=== PATIENT | male | born 1985 | race Caucasian/White ===

== ENCOUNTER → 2017-03-25 18:48 | Outpatient (CLI) | payer OTHER, SELFPAY ==
[2017-03-25 19:11] LABS: Absolute Lymphocyte Count 2.03 X10^3/ul (0.83-4.51); Basophil# 0.03 X10^3/uL; Basophil% 0.4 % (0-1); Eosinophil# 0.33 X10^3/uL; Eosinophils% 4.5 % (0-5); Hematocrit 45.6 % (40-54); Hemoglobin 15.1 g/dl (13.0-16.5); Lymphocyte # 2.03 X10^3/ul (4.0); Lymphocyte % 27.5 % (19-41); Mean Corp Hgb Conc 33.1 g/gl (32-36); Mean Corpuscular Hgb 29.8 pg (27.0-32.0); Mean Corpuscular Volume 90.1 fL (80-94); Mean Platelet Vol. 10.9 fl (6.2-12.0); Monocyte# 0.96 X10^3/uL; Neutrophil # 4.01 X10^3/uL (2.7-7.7); Neutrophil % 54.3 % (47-70); POSITIVE COUNT NO; POSITIVE DIFFERENTIAL NO; POSITIVE MORPHOLOGY NO; Platelet Count 224 K/mm3 (150-450); RBC Distribution Width CV 12.8 % (11.6-14.6); RBC Distribution Width SD 41.5 fl (35.1-43.9); Red Blood Count 5.06 M/mm3 (4.6-6.2); White Blood Count 7.4 K/mm3 (4.4-11.0)
[2017-03-25 19:36] LABS: Vitamin D,25 Hydroxy 26.4 ng/mL
[2017-03-25 19:39] LABS: ALB/GLOB Ratio 0.8 RATIO (0.9-2.4); AST(SGOT) 29 U/L (15-37); Alanine Aminotransfer ALT/SGPT 55 U/L (12-78); Albumin, Serum 3.7 g/dL (3.4-5.0); Alkaline Phosphatase 82 U/L (45-117); Anion Gap 8 (5-15); BUN 13 mg/dL (7-18); BUN/Creat Ratio 15.7 RATIO (10-20); Calcium,Total 9.2 mg/dL (8.5-10.1); Chloride 101 mmol/L (98-107); Creatinine, Serum 0.83 mg/dL (0.70-1.30); EST Glomerular Filtration Rate 115 mL/min (>60); Est Glom Filt Rate - Afr Amer 140 mL/min (>60); Globulin 4.5 g/dL (2.3-3.5); Glucose 75 mg/dL (70-110); Potassium 3.9 mmol/L (3.5-5.1); Protein, Total 8.2 g/dL (6.4-8.2); Sodium Level 139 mmol/L (136-145); Thyroid Stim Hormone (TSH) 1.87 uIU/mL (0.358-3.74)
== END | disposition home or self-care (01) ==
PROVIDERS: Visit Provider Family Medicine Geriatric Medicine
DX: Z00.00 Encounter for general adult medical examination without abnormal findings (principal)
CPT/HCPCS: 36415; 80053; 82306; 84403; 84443; 85025

== ENCOUNTER → 2018-02-15 16:09 | Outpatient (CLI) | payer OTHER, SELFPAY ==
--- NOTE | 2018-02-15 16:12 | VDLE_ITS ---
Reason For Study: Edema RIGHT LEFT GSV is normal. GSV is normal. CFV is compressible, spontaneous, phasic, CFV is compressible, spontaneous, phasic, competent and demonstrates normal competent, and demonstrates normal augmentation. augmentation. FV is compressible, spontaneous, phasic, FV is compressible, spontaneous, phasic, competent and demonstrates normal competent and demonstrates normal augmentation. augmentation. POP V is compressible, spontaneous, phasic, POP V is compressible, spontaneous, phasic, competent and demonstrates normal competent and demonstrates normal augmentation. augmentation. T/P Trunk is compressible. T/P Trunk is compressible. PTV is compressible. PTV is compressible. Unable to visualize Rt PeroV and prox/mid Unable to visualize Lt PeroV and prox/mid PTV due to pt body habitus PTV due to pt body habitus Difficult to visualize Rt FV distal and Rt Difficult to visualize Lt FV distal and Lt GastrocV. GastrocV. Procedure Exam performed in department. The study was technically difficult. The study was technically limited. A preliminary report was called and/or faxed to Dr. Hoyt. Interpretation Summary Deep veins of the lower extremities are bilaterally patent and compressible segmentally. There is no evidence of deep vein thrombosis on either side. Valvular competence appears intact within the proximal deep venous systems bilaterally. The greater saphenous veins appear bilaterally patent and compressible segmentally. The peroneal veins and proximal/mid-posterior tibial veins were not visualized on either side due to the patient's body habitus. The femoral veins and gastrocnemius veins were difficult to visualize bilaterally. Ordering Physician: Escobar Hoyt Chi Referring Physician: Escobar Hoyt Chi Performed By: Regina Howell, RDCS, RVT
== END ==
PROVIDERS: Family Provider Family Medicine Geriatric Medicine; PCP Family Medicine Geriatric Medicine; Visit Provider Family Medicine Geriatric Medicine
DX: R60.0 Localized edema (principal)
CPT/HCPCS: 93970

== ENCOUNTER 2018-05-31 15:30 | Outpatient (RCR) | payer OTHER, SELFPAY ==
[2018-05-17 15:16] VITALS: BP 156/105; PULSE 91; RESP 22; TEMP 37.2; BMI 61.0
--- NOTE | 2018-05-17 17:01 | HP.PCM_ITS ---
(1) Morbid obesity with BMI of 60.0-69.9, adult Status: Chronic Current Visit: Yes Code(s): E66.01 - Morbid (severe) obesity due to excess calories; Z68.44 - Body mass index (BMI) 60.0-69.9, adult (2) Chronic venous insufficiency Status: Chronic Current Visit: Yes Code(s): I87.2 - Venous insufficiency ( chronic) (peripheral) (3) Chronic venous hypertension w/ulcer and inflammation involv right side Status: Chronic Current Visit: Yes Code(s): I87.331 - Chronic venous hypertension (idiopathic) with ulcer and inflammation of right lower extremity; L97.919 - Non-pressure chronic ulcer of unspecified part of right lower leg with unspecified severity (4) Venous stasis ulcer Status: Chronic Current Visit: Yes Qualifiers: Venous stasis ulcer site: other part of lower leg Laterality: right Non- pressure ulcer stage: with fat layer exposed Code(s): I83.009 - Varicose veins of unspecified lower extremity with ulcer of unspecified site; L97.909 - Non-pressure chronic ulcer of unspecified part of unspecified lower leg with unspecified severity (5) Leg swelling Status: Chronic Current Visit: Yes Code(s): M79.89 - Other specified soft tissue disorders (6) Edema of both legs Status: Chronic Current Visit: Yes Code(s): R60.0 - Localized edema History of Present Illness Date of Service: 05/17/18 Chief Complaint: Chronic venous hypertension with inflammation and ulceration; venous stasis ulceration of the right lower extremity, chronic venous insufficiency, bilateral lower extremity swelling and edema. History of Wound: This is a 33-year-old generally healthy white male who suffers from morbid obesity. He presents with an ulceration on the right anterior tibial surface, which has been present for nearly 5 years. He also has swelling and edema in both lower extremities. His BMI is 61, placing him in a class III obesity category. He is relatively active. He claims to sleep on a flat mattress at night. He does not generally elevate his lower extremities when he is inactive. He denies a history of thrombophlebitis in the past. His primary care physician has attempted to manage his right lower extremity ulceration in the past, without success. This has resulted in referral to the wound center setting. Past Medical History Past Medical History: Chronic Problems Morbid obesity with BMI of 60.0-69.9, adult (Chronic) Chronic venous insufficiency (Chronic) Chronic venous hypertension w/ulcer and inflammation involv right side (Chronic) Venous stasis ulcer (Chronic) Leg swelling (Chronic) Edema of both legs (Chronic) Past Medical History: Patient denies a history of myocardial infarction, congestive heart failure, cerebrovascular accident, diabetes mellitus, cancer, hypertension, pulmonary disease, renal disease, thyroid disease, and hyperlipidemia. He does suffer from morbid obesity. Surgical History: no surgical history Allergies/Adverse Reactions: Allergies No Known Allergies Allergy (Verified 05/17/18 15:42) - Family History Paternal - - The patient is estranged from his father, and knows little about his father' s medical history. The patient's mother is 58 years of age and healthy. Lives: Spouse/ Significant Other Smoking Status: Never smoker Tobacco Use: Non-smoker Alcohol: Occasional Drugs: None Review of Systems Constitutional: Denies: Chills, Fever, Weight Change Eyes: Denies: Pain, Vision Change HEENT: Denies: Difficulty Hearing, Difficulty Swallowing, Sinus Congestion Cardiovascular: Denies: Chest Pain, Palpitations Respiratory: Denies: Cough, Shortness of Breath Gastrointestinal: Denies: Diarrhea, Nausea, Vomiting Genitourinary: Denies: Dysuria, Hematuria Endocrine: Denies: Heat/ Cold Intolerance, Polydipsia, Polyuria Hematologic/ Lymphatic: Denies: Easy Bruising, Easy Bleeding - Physical Exam Vital Signs Temp Pulse Resp BP 98.9 F 91 22 H 156/105 H 05/17/18 15:16 05/17/18 15:16 05/17/18 15:16 05/17/18 15:16 General: Alert, Oriented x3, Cooperative, No apparent distress, Well developed, Well nourished, - - The patient is morbidly obese HEENT: Atraumatic, PERRLA, EOMI, Normocephalic Oral: Moist Mucosa Neck: Supple, No JVD, Negative Carotid Bruits, Negative Hepatojugular Reflux, No Nodes, No Nuchal Rigidity, Trachea Midline Lungs: Clear to auscultation, Normal air movement, No rhonchi, No wheeze, No rales Cardiovascular: Regular rate, Regular Rhythm, Normal S1, Normal S2, No murmurs Abdomen: Soft, Non Tender, Non-Distended, Obese Extremities: No clubbing, No cyanosis, No Calf Tenderness, Edema, - - Swelling and edema are noted in the lower extremities bilaterally. A large superficial ulceration is noted on the right anterior tibial surface. There is no sign of infection or cellulitis. Dimensions are documented elsewhere. There is a mild amount of bioburden. Wound Measurements and Assessment WC - Nurse 1 - General Ulcer Measurement Start: 05/17/18 15:11 Freq: Status: Active Protocol: Activity Type Activity Date Activity User E-Sign Co-Sign Detail Recorded Client Recorded Date Recorded By Document 05/17/18 15:16 DL [id number] 05/17/18 15:39 DL 05/17/18 15:16 Wound Center Nurse 1 [Ulcer Assessment] #1 R Lower Rodriguez -Current Size (cm) - Length 6.8 -Current Size (cm) - Width 8.5 -Current Size (cm) - Depth 0.1 -Total Square Cm 57.80 -Photo Taken Yes -Tunneling No -Undermining/Tunneling No -Classification - Thickness Full Thickness without Exposed Support Structure -Exudate Amt Large (67-100%) -Exudate Type Serosanguineous -Wound Margin Distinct, Outline Attached -Granulation Amt Small (1-33%) -Granulation Quality Red -Necrosis Amt Large (67-100%) -Necrotic Tissue Type Adherent Slough -Structure Exposed N/A -Texture (Leydi-wound Skin Appearance) Localized Edema Scarring -Moisture (Leydi-wound Skin Appearance No Abnormality ) -Color (Leydi-wound Skin Appearance) Erythema Hemosiderin Staining Rubor -Temperature (Leydi-wound Skin No Abnormality Appearance) (Pt Warm) -Ulcer Cleansing Wound Cleanser -Foul Odor after Cleansing No -Anesthetic Used 4% Lidocaine Solution [Edema Assessment] -Right Calf (cm) 66 -Right Ankle (cm) 33.5 -Left Calf (cm) 60 -Left Ankle (cm) 33.4 WC - Nurse 2 - General Ulcer CM Notes Start: 05/17/18 15:11 Freq: Status: Active Protocol: Activity Type Activity Date Activity User E-Sign Co-Sign Detail Recorded Client Recorded Date Recorded By Document 05/17/18 16:31 CS [id number] 05/17/18 16:33 CS 05/17/18 16:31 Wound Center Nurse 2 [Procedure/Treatment] #1 R Lower [place] -Time 16:33 -Correct Patient No -Correct Side, Site, Position No -Correct Procedure No -Procedure Performed No [See Physician Procedure note for Specifics] Pain Scale: 0-10 Numeric [Pain] -Is Patient Pain Free? Yes Musculoskeletal: No Tenderness to Palpation of Joints or Extremities, No Muscle Wasting Neurological: Cranial nerves II-XII grossly intact, Neuro grossly intact Psych/Mental Status: Normal Affect, Appropriate, Alert and oriented to time, place, person, mood and affect Debridement Note Post-Debridement Measurements/Treatment WC - Nurse 2 - General Ulcer CM Notes Start: 05/17/18 15:11 Freq: Status: Active Protocol: Activity Type Activity Date Activity User E-Sign Co-Sign Detail Recorded Client Recorded Date Recorded By Document 05/17/18 16:31 [id number] 05/17/18 16:33 05/17/18 16:31 Wound Center Nurse 2 #1 R Lower [place] -Time 16:33 -Correct Patient No -Correct Side, Site, Position No -Correct Procedure No -Procedure Performed No Pain Scale: 0-10 Numeric Is Patient Pain Free? Yes No debridement was completed today Assessment/Plan Active Problems Morbid obesity with BMI of 60.0-69.9, adult (Chronic) Chronic venous insufficiency (Chronic) Chronic venous hypertension w/ulcer and inflammation involv right side (Chronic) Venous stasis ulcer (Chronic) Leg swelling (Chronic) Edema of both legs (Chronic) Assessment: This is a generally healthy but morbidly obese 33-year-old white male who presents with a long-standing ulceration on the distal right lower extremity. The ulceration is thought to be venous in origin. Swelling and edema are also noted bilaterally in lower extremities. Plan: The patient has been counseled as to lifestyle changes appropriate to implementing conservative treatment measures and treatment for his lower extremity swelling and edema, and the ulceration on the right anterior tibial surface. He has been advised to elevate his lower extremities as much as possible. This is to be accomplished even during daytime hours. His legs are to be elevated to heart level, or higher. He is to continue sleeping on a flat mattress at night. He has been advised to refrain from prolonged, idle sitting. Activity has been encouraged. Attempts at weight loss have been strongly encouraged as well. We are to implement compression to the right lower extremity by means of an Unna boot, which will be applied in the wound center today. This will be changed twice weekly. There is little likelihood of arterial occlusive disease, so a noninvasive lower extremity arterial study will not be scheduled. Patient is return in 2 weeks for reevaluation. Influenza vaccine was not administered today. The patient is not a smoker. The patient weighs 450 pounds. He stands 6 feet 0 inches in height. His BMI is 61, which places him in a class III obesity category. Weight loss has been strongly recommended, and collaboration with the patient's primary care physician has been recommended.
[2018-05-21 14:16] VITALS: BP 164/105; PULSE 94; RESP 16; TEMP 36.6; BMI 61.0
[2018-05-24 13:36] VITALS: BP 165/100; PULSE 88; RESP 16; TEMP 36.4; BMI 61.0
[2018-05-28 16:30] VITALS: BP 152/113; PULSE 109; RESP 18; TEMP 36.6; BMI 61.0
[2018-05-31 15:25] VITALS: BP 162/105; PULSE 101; RESP 20; TEMP 36.3; BMI 61.0
--- NOTE | 2018-05-31 15:51 | PCM.WC.HP ---
(1) Morbid obesity with BMI of 60.0-69.9, adult Status: Chronic Current Visit: Yes Code(s): E66.01 - Morbid (severe) obesity due to excess calories; Z68.44 - Body mass index (BMI) 60.0-69.9, adult (2) Chronic venous insufficiency Status: Chronic Current Visit: Yes Code(s): I87.2 - Venous insufficiency (chronic) (peripheral) (3) Chronic venous hypertension w/ulcer and inflammation involv right side Status: Chronic Current Visit: Yes Code(s): I87.331 - Chronic venous hypertension (idiopathic) with ulcer and inflammation of right lower extremity; L97.919 - Non-pressure chronic ulcer of unspecified part of right lower leg with unspecified severity (4) Venous stasis ulcer Status: Chronic Current Visit: Yes Qualifiers: Venous stasis ulcer site: other part of lower leg Laterality: right Non-pressure ulcer stage: with fat layer exposed Code(s): I83.009 - Varicose veins of unspecified lower extremity with ulcer of unspecified site; L97.909 - Non-pressure chronic ulcer of unspecified part of unspecified lower leg with unspecified severity (5) Leg swelling Status: Chronic Current Visit: Yes Code(s): M79.89 - Other specified soft tissue disorders (6) Edema of both legs Status: Chronic Current Visit: Yes Code(s): R60.0 - Localized edema History of Present Illness Date of Service: 05/31/18 Chief Complaint: Chronic venous hypertension with inflammation and ulceration; venous stasis ulceration of the right lower extremity, chronic venous insufficiency, bilateral lower extremity swelling and edema. History of Wound: This is a 33-year-old generally healthy white male who suffers from morbid obesity. He presents with an ulceration on the right anterior tibial surface, which has been present for nearly 5 years. He also has swelling and edema in both lower extremities. His BMI is 61, placing him in a class III obesity category. He is relatively active. He claims to sleep on a flat mattress at night. He does not generally elevate his lower extremities when he is inactive. He denies a history of thrombophlebitis in the past. His primary care physician has attempted to manage his right lower extremity ulceration in the past, without success. This has resulted in referral to the wound center setting. Past Medical History Past Medical History: Chronic Problems Morbid obesity with BMI of 60.0-69.9, adult (Chronic) Chronic venous insufficiency (Chronic) Chronic venous hypertension w/ulcer and inflammation involv right side (Chronic) Venous stasis ulcer (Chronic) Leg swelling (Chronic) Edema of both legs (Chronic) Surgical History: no surgical history Allergies/Adverse Reactions: Allergies No Known Allergies Allergy (Verified 05/17/18 15:42) - Family History Paternal - - The patient is estranged from his father, and knows little about his father's medical history. The patient's mother is 58 years of age and healthy. Lives: Spouse/ Significant Other Smoking Status: Never smoker Tobacco Use: Non-smoker Alcohol: Occasional Drugs: None Review of Systems Constitutional: Denies: Chills, Fever, Weight Change Eyes: Denies: Pain, Vision Change HEENT: Denies: Difficulty Hearing, Difficulty Swallowing, Sinus Congestion Cardiovascular: Denies: Chest Pain, Palpitations Respiratory: Denies: Cough, Shortness of Breath Gastrointestinal: Denies: Diarrhea, Nausea, Vomiting Genitourinary: Denies: Dysuria, Hematuria Endocrine: Denies: Heat/ Cold Intolerance, Polydipsia, Polyuria Hematologic/ Lymphatic: Denies: Easy Bruising, Easy Bleeding - Physical Exam Vital Signs Temp Pulse Resp BP 97.3 F L 101 H 20 H 162/105 H 05/31/18 15:25 05/31/18 15:25 05/31/18 15:25 05/31/18 15:25 General: Alert, Oriented x3, Cooperative, No apparent distress, Well developed, Well nourished, - - The patient is morbidly obese HEENT: Atraumatic, PERRLA, EOMI, Normocephalic Oral: Moist Mucosa Neck: No JVD Lungs: Normal air movement Abdomen: Non-Distended, Obese Extremities: No clubbing, No cyanosis, No Calf Tenderness, Edema, - - Moderate swelling and edema persist in the lower extremities bilaterally. However, circumference measurements have decreased in the right lower extremity since the patient's last visit. The ulceration on the right anterior tibial surface appears improved, and smaller in size. There is evidence of peripheral epithelialization. The base of the ulceration is pink with active granulation tissue. There is a mild to moderate amount of bioburden. Circumference measurements and ulcer dimensions are documented elsewhere. There is no sign of infection or cellulitis. Skin: No rashes Wound Measurements and Assessment - Nurse 1 - General Ulcer Measurement Start: 05/17/18 15:11 Freq: Status: Active Protocol: Activity Type Activity Date Activity User E-Sign Co-Sign Detail Recorded Client Recorded Date Recorded By Document 05/31/18 15:25 [id number] 05/31/18 15:27 05/31/18 15:25 Wound Center Nurse 1 [Ulcer Assessment] #1 R Lower Rodriguez -Combined with other wound No -Current Size (cm) - Length 1.6 -Current Size (cm) - Width 1.5 -Current Size (cm) - Depth 0.1 -Total Square Cm 2.40 -Photo Taken No -Epithelialization Small 1-33% -Tunneling No -Undermining/Tunneling No -Circular Undermining No -Exudate Amt Medium (34-66%) -Exudate Type Serosanguineous -Wound Margin Distinct, Outline Attached -Granulation Amt Medium (34-66%) -Granulation Quality [place] Red -Slough/Fibrin No -Necrosis Amt None Present (0 %) -Necrotic Tissue Type Adherent Slough -Structure Exposed None/Limited to Skin Breakdown -Texture (Leydi-wound Skin Appearance) Assessed -Moisture (Leydi-wound Skin Appearance Assessed ) -Color (Leydi-wound Skin Appearance) Assessed -Temperature (Leydi-wound Skin No Abnormality Appearance) (Pt Warm) -Ulcer Cleansing Wound Cleanser -Foul Odor after Cleansing No -Anesthetic Used 4% Lidocaine Solution [Edema Assessment] -Lower Limb Edema Present Yes -Right Calf (cm) 61.6 -Right Ankle (cm) 33.5 - Nurse 2 - General Ulcer CM Notes Start: 05/17/18 15:11 Freq: Status: Active Protocol: Activity Type Activity Date Activity User E-Sign Co-Sign Detail Recorded Client Recorded Date Recorded By Document 05/31/18 15:43 [id number] 05/31/18 15:44 05/31/18 15:43 Wound Center Nurse 2 [Procedure/Treatment] #1 R Lower Rodriguez -Time 15:44 -Correct Patient Yes -Correct Side, Site, Position Yes -Correct Procedure Yes -Procedure Performed Yes -Type of Procedure Debridement -Clinical Debridement Subcutaneous -Post Debridement Size (cm) - Length 1.6 -Post Debridement Size (cm) - Width 1.6 -Post Debridement Size (cm) - Depth 0.1 -Total Square Cm 2.56 -Wound/Ulcer Outcome Not Healed -Ulcer Cleansing Rinsed/ Irrigated with Saline -Foul Odor after Cleansing No -Bioengineered Tissue No -Bleeding Controlled with Pressure -Treatment Response Procedure Tolerated Well [See Physician Procedure note for Specifics] Pain Scale: 0-10 Numeric [Pain] -Is Patient Pain Free? Yes Musculoskeletal: No Muscle Wasting Neurological: Cranial nerves II-XII grossly intact, Neuro grossly intact Psych/Mental Status: Normal Affect, Appropriate, Alert and oriented to time, place, person, mood and affect Debridement Note Post-Debridement Measurements/Treatment WC - Nurse 2 - General Ulcer CM Notes Start: 05/17/18 15:11 Freq: Status: Active Protocol: Activity Type Activity Date Activity User E-Sign Co-Sign Detail Recorded Client Recorded Date Recorded By Document 05/17/18 16:31 CS [id number] 05/17/18 16:33 CS Document 05/31/18 15:43 [id number] 05/31/18 15:44 05/17/18 05/31/18 16:31 15:43 Wound Center Nurse 2 #1 R Lower Rodriguez -Time 16:33 15:44 -Correct Patient No Yes -Correct Side, Site, Position No Yes -Correct Procedure No Yes -Procedure Performed No Yes -Type of Procedure Debridement -Clinical Debridement Subcutaneous -Post Debridement Size (cm) - Length 1.6 -Post Debridement Size (cm) - Width 1.6 -Post Debridement Size (cm) - Depth 0.1 -Total Square Cm 2.56 -Wound/Ulcer Outcome Not Healed -Ulcer Cleansing Rinsed/ Irrigated with Saline -Foul Odor after Cleansing No -Bioengineered Tissue No -Bleeding Controlled with Pressure -Treatment Response Procedure Tolerated Well Pain Scale: 0-10 Numeric Is Patient Pain Free? Yes Yes Laterality: Right - Anterior tibial surface Type of Debridement: Excisional debridement Anesthesia Used: 4% Lidocaine Solution Depth: Down to and including healthy tissue, in the subcutaneous layer Percentage of wound debrided: 100 Instrument Used: 5mm curette Severity: Fat Layer Exposed Amount of bleeding with debridement: Mild Bleeding Controlled with: Compression and gauze Patient tolerated procedure well Assessment/Plan Active Problems Morbid obesity with BMI of 60.0-69.9, adult (Chronic) Chronic venous insufficiency (Chronic) Chronic venous hypertension w/ulcer and inflammation involv right side (Chronic) Venous stasis ulcer (Chronic) Leg swelling (Chronic) Edema of both legs (Chronic) Assessment: This is a generally healthy but morbidly obese 33-year-old white male who presents with a long-standing ulceration on the distal right lower extremity. The ulceration is thought to be venous in origin. Swelling and edema are also noted bilaterally in lower extremities. Plan: The patient has been counseled as to lifestyle changes appropriate to implementing conservative treatment measures and treatment for his lower extremity swelling and edema, and the ulceration on the right anterior tibial surface. He has been advised to elevate his lower extremities as much as possible. This is to be accomplished even during daytime hours. His legs are to be elevated to heart level, or higher. He is to continue sleeping on a flat mattress at night. He has been advised to refrain from prolonged, idle sitting. Activity has been encouraged. Attempts at weight loss have been strongly encouraged as well. We are to continue compression to the right lower extremity by means of an Unna boot, which will be applied in the Wound Center twice weekly. There is little likelihood of arterial occlusive disease, so a noninvasive lower extremity arterial study will not be scheduled. Patient is return in 1 week for reevaluation. Several measurements of the patient's blood pressure today indicate that it is rather high, both systolic and diastolic. The patient has been advised, and has been recommended to follow-up with his primary care physician in this regard. Influenza vaccine was not administered today. The patient is not a smoker. The patient weighs 450 pounds. He stands 6 feet 0 inches in height. His BMI is 61, which places him in a class III obesity category. Weight loss has been strongly recommended, and collaboration with the patient's primary care physician has been recommended.
--- NOTE | 2018-05-31 15:55 | HP.PCM_ITS ---
(1) Morbid obesity with BMI of 60.0-69.9, adult Status: Chronic Current Visit: Yes Code(s): E66.01 - Morbid (severe) obesity due to excess calories; Z68.44 - Body mass index (BMI) 60.0-69.9, adult (2) Chronic venous insufficiency Status: Chronic Current Visit: Yes Code(s): I87.2 - Venous insufficiency ( chronic) (peripheral) (3) Chronic venous hypertension w/ulcer and inflammation involv right side Status: Chronic Current Visit: Yes Code(s): I87.331 - Chronic venous hypertension (idiopathic) with ulcer and inflammation of right lower extremity; L97.919 - Non-pressure chronic ulcer of unspecified part of right lower leg with unspecified severity (4) Venous stasis ulcer Status: Chronic Current Visit: Yes Qualifiers: Venous stasis ulcer site: other part of lower leg Laterality: right Non- pressure ulcer stage: with fat layer exposed Code(s): I83.009 - Varicose veins of unspecified lower extremity with ulcer of unspecified site; L97.909 - Non-pressure chronic ulcer of unspecified part of unspecified lower leg with unspecified severity (5) Leg swelling Status: Chronic Current Visit: Yes Code(s): M79.89 - Other specified soft tissue disorders (6) Edema of both legs Status: Chronic Current Visit: Yes Code(s): R60.0 - Localized edema History of Present Illness Date of Service: 05/31/18 Chief Complaint: Chronic venous hypertension with inflammation and ulceration; venous stasis ulceration of the right lower extremity, chronic venous insufficiency, bilateral lower extremity swelling and edema. History of Wound: This is a 33-year-old generally healthy white male who suffers from morbid obesity. He presents with an ulceration on the right anterior tibial surface, which has been present for nearly 5 years. He also has swelling and edema in both lower extremities. His BMI is 61, placing him in a class III obesity category. He is relatively active. He claims to sleep on a flat mattress at night. He does not generally elevate his lower extremities when he is inactive. He denies a history of thrombophlebitis in the past. His primary care physician has attempted to manage his right lower extremity ulceration in the past, without success. This has resulted in referral to the wound center setting. Past Medical History Past Medical History: Chronic Problems Morbid obesity with BMI of 60.0-69.9, adult (Chronic) Chronic venous insufficiency (Chronic) Chronic venous hypertension w/ulcer and inflammation involv right side (Chronic) Venous stasis ulcer (Chronic) Leg swelling (Chronic) Edema of both legs (Chronic) Surgical History: no surgical history Allergies/Adverse Reactions: Allergies No Known Allergies Allergy (Verified 05/17/18 15:42) - Family History Paternal - - The patient is estranged from his father, and knows little about his father' s medical history. The patient's mother is 58 years of age and healthy. Lives: Spouse/ Significant Other Smoking Status: Never smoker Tobacco Use: Non-smoker Alcohol: Occasional Drugs: None Review of Systems Constitutional: Denies: Chills, Fever, Weight Change Eyes: Denies: Pain, Vision Change HEENT: Denies: Difficulty Hearing, Difficulty Swallowing, Sinus Congestion Cardiovascular: Denies: Chest Pain, Palpitations Respiratory: Denies: Cough, Shortness of Breath Gastrointestinal: Denies: Diarrhea, Nausea, Vomiting Genitourinary: Denies: Dysuria, Hematuria Endocrine: Denies: Heat/ Cold Intolerance, Polydipsia, Polyuria Hematologic/ Lymphatic: Denies: Easy Bruising, Easy Bleeding - Physical Exam Vital Signs Temp Pulse Resp BP 97.3 F L 101 H 20 H 162/105 H 05/31/18 15:25 05/31/18 15:25 05/31/18 15:25 05/31/18 15:25 General: Alert, Oriented x3, Cooperative, No apparent distress, Well developed, Well nourished, - - The patient is morbidly obese HEENT: Atraumatic, PERRLA, EOMI, Normocephalic Oral: Moist Mucosa Neck: No JVD Lungs: Normal air movement Abdomen: Non-Distended, Obese Extremities: No clubbing, No cyanosis, No Calf Tenderness, Edema, - - Moderate swelling and edema persist in the lower extremities bilaterally. However, circumference measurements have decreased in the right lower extremity since the patient's last visit. The ulceration on the right anterior tibial surface appears improved, and smaller in size. There is evidence of peripheral epithelialization. The base of the ulceration is pink with active granulation tissue. There is a mild to moderate amount of bioburden. Circumference measurements and ulcer dimensions are documented elsewhere. There is no sign of infection or cellulitis. Skin: No rashes Wound Measurements and Assessment - Nurse 1 - General Ulcer Measurement Start: 05/17/18 15:11 Freq: Status: Active Protocol: Activity Type Activity Date Activity User E-Sign Co-Sign Detail Recorded Client Recorded Date Recorded By Document 05/31/18 15:25 [id number] 05/31/18 15:27 05/31/18 15:25 Wound Center Nurse 1 [Ulcer Assessment] #1 R Lower Rodriguez -Combined with other wound No -Current Size (cm) - Length 1.6 -Current Size (cm) - Width 1.5 -Current Size (cm) - Depth 0.1 -Total Square Cm 2.40 -Photo Taken No -Epithelialization Small 1-33% -Tunneling No -Undermining/Tunneling No -Circular Undermining No -Exudate Amt Medium (34-66%) -Exudate Type Serosanguineous -Wound Margin Distinct, Outline Attached -Granulation Amt Medium (34-66%) -Granulation Quality [place] Red -Slough/Fibrin No -Necrosis Amt None Present (0 %) -Necrotic Tissue Type Adherent Slough -Structure Exposed None/Limited to Skin Breakdown -Texture (Leydi-wound Skin Appearance) Assessed -Moisture (Leydi-wound Skin Appearance Assessed ) -Color (Leydi-wound Skin Appearance) Assessed -Temperature (Leydi-wound Skin No Abnormality Appearance) (Pt Warm) -Ulcer Cleansing Wound Cleanser -Foul Odor after Cleansing No -Anesthetic Used 4% Lidocaine Solution [Edema Assessment] -Lower Limb Edema Present Yes -Right Calf (cm) 61.6 -Right Ankle (cm) 33.5 - Nurse 2 - General Ulcer CM Notes Start: 05/17/18 15:11 Freq: Status: Active Protocol: Activity Type Activity Date Activity User E-Sign Co-Sign Detail Recorded Client Recorded Date Recorded By Document 05/31/18 15:43 [id number] 05/31/18 15:44 05/31/18 15:43 Wound Center Nurse 2 [Procedure/Treatment] #1 R Lower Rodriguez -Time 15:44 -Correct Patient Yes -Correct Side, Site, Position Yes -Correct Procedure Yes -Procedure Performed Yes -Type of Procedure Debridement -Clinical Debridement Subcutaneous -Post Debridement Size (cm) - Length 1.6 -Post Debridement Size (cm) - Width 1.6 -Post Debridement Size (cm) - Depth 0.1 -Total Square Cm 2.56 -Wound/Ulcer Outcome Not Healed -Ulcer Cleansing Rinsed/ Irrigated with Saline -Foul Odor after Cleansing No -Bioengineered Tissue No -Bleeding Controlled with Pressure -Treatment Response Procedure Tolerated Well [See Physician Procedure note for Specifics] Pain Scale: 0-10 Numeric [Pain] -Is Patient Pain Free? Yes Musculoskeletal: No Muscle Wasting Neurological: Cranial nerves II-XII grossly intact, Neuro grossly intact Psych/Mental Status: Normal Affect, Appropriate, Alert and oriented to time, place, person, mood and affect Debridement Note Post-Debridement Measurements/Treatment WC - Nurse 2 - General Ulcer CM Notes Start: 05/17/18 15:11 Freq: Status: Active Protocol: Activity Type Activity Date Activity User E-Sign Co-Sign Detail Recorded Client Recorded Date Recorded By Document 05/17/18 16:31 CS [id number] 05/17/18 16:33 CS Document 05/31/18 15:43 [id number] 05/31/18 15:44 05/17/18 05/31/18 16:31 15:43 Wound Center Nurse 2 #1 R Lower Rodriguez -Time 16:33 15:44 -Correct Patient No Yes -Correct Side, Site, Position No Yes -Correct Procedure No Yes -Procedure Performed No Yes -Type of Procedure Debridement -Clinical Debridement Subcutaneous -Post Debridement Size (cm) - Length 1.6 -Post Debridement Size (cm) - Width 1.6 -Post Debridement Size (cm) - Depth 0.1 -Total Square Cm 2.56 -Wound/Ulcer Outcome Not Healed -Ulcer Cleansing Rinsed/ Irrigated with Saline -Foul Odor after Cleansing No -Bioengineered Tissue No -Bleeding Controlled with Pressure -Treatment Response Procedure Tolerated Well Pain Scale: 0-10 Numeric Is Patient Pain Free? Yes Yes Laterality: Right - Anterior tibial surface Type of Debridement: Excisional debridement Anesthesia Used: 4% Lidocaine Solution Depth: Down to and including healthy tissue, in the subcutaneous layer Percentage of wound debrided: 100 Instrument Used: 5mm curette Severity: Fat Layer Exposed Amount of bleeding with debridement: Mild Bleeding Controlled with: Compression and gauze Patient tolerated procedure well Assessment/Plan Active Problems Morbid obesity with BMI of 60.0-69.9, adult (Chronic) Chronic venous insufficiency (Chronic) Chronic venous hypertension w/ulcer and inflammation involv right side (Chronic) Venous stasis ulcer (Chronic) Leg swelling (Chronic) Edema of both legs (Chronic) Assessment: This is a generally healthy but morbidly obese 33-year-old white male who presents with a long-standing ulceration on the distal right lower extremity. The ulceration is thought to be venous in origin. Swelling and edema are also noted bilaterally in lower extremities. Plan: The patient has been counseled as to lifestyle changes appropriate to implementing conservative treatment measures and treatment for his lower extremity swelling and edema, and the ulceration on the right anterior tibial surface. He has been advised to elevate his lower extremities as much as possible. This is to be accomplished even during daytime hours. His legs are to be elevated to heart level, or higher. He is to continue sleeping on a flat mattress at night. He has been advised to refrain from prolonged, idle sitting. Activity has been encouraged. Attempts at weight loss have been strongly encouraged as well. We are to continue compression to the right lower extremity by means of an Unna boot, which will be applied in the Wound Center twice weekly. There is little likelihood of arterial occlusive disease, so a noninvasive lower extremity arterial study will not be scheduled. Patient is return in 1 week for reevaluation. Several measurements of the patient's blood pressure today indicate that it is rather high, both systolic and diastolic. The patient has been advised, and has been recommended to follow-up with his primary care physician in this regard. Influenza vaccine was not administered today. The patient is not a smoker. The patient weighs 450 pounds. He stands 6 feet 0 inches in height. His BMI is 61, which places him in a class III obesity category. Weight loss has been strongly recommended, and collaboration with the patient's primary care physician has been recommended.
== END 2018-06-01 23:59 ==
LOC: WC 15:30
PROVIDERS: Family Provider Family Medicine Geriatric Medicine; PCP Family Medicine Geriatric Medicine; Visit Provider Surgery
DX: I83.218 Varicose veins of right lower extremity with both ulcer of other part of lower extremity and inflammation (principal); E66.01 Morbid (severe) obesity due to excess calories; Z68.44 Body mass index [BMI] 60.0-69.9, adult; Z71.3 Dietary counseling and surveillance; R60.0 Localized edema; M79.89 Other specified soft tissue disorders; L97.812 Non-pressure chronic ulcer of other part of right lower leg with fat layer exposed
CPT/HCPCS: 11042; 29580; 99203; 99204; 99211; 99213; G0463

== ENCOUNTER 2018-06-28 14:30 | Outpatient (RCR) | payer OTHER, SELFPAY ==
[2018-06-02 01:26] VITALS: BP 162/105; PULSE 101; RESP 20; TEMP 36.3
[2018-06-04 15:51] VITALS: BP 146/104; PULSE 103; RESP 18; TEMP 36.6
[2018-06-07 15:41] VITALS: BP 150/102; PULSE 89; RESP 16; TEMP 37
--- NOTE | 2018-06-07 16:25 | HP.PCM_ITS ---
(1) Hyperlipidemia Status: Chronic Current Visit: No Code(s): E78.5 - Hyperlipidemia, unspecified (2) Dyspnea on exertion Status: Chronic Current Visit: No Code(s): R06.09 - Other forms of dyspnea (3) SOB (shortness of breath) Status: Chronic Current Visit: No Code(s): R06.02 - Shortness of breath (4) Morbid obesity with BMI of 60.0-69.9, adult Status: Chronic Current Visit: No Code(s): E66.01 - Morbid (severe) obesity due to excess calories; Z68.44 - Body mass index (BMI) 60.0-69.9, adult (5) Chronic venous insufficiency Status: Chronic Current Visit: Yes Code(s): I87.2 - Venous insufficiency ( chronic) (peripheral) (6) Chronic venous hypertension w/ulcer and inflammation involv right side Status: Chronic Current Visit: Yes Code(s): I87.331 - Chronic venous hypertension (idiopathic) with ulcer and inflammation of right lower extremity; L97.919 - Non-pressure chronic ulcer of unspecified part of right lower leg with unspecified severity (7) Venous stasis ulcer Status: Chronic Current Visit: Yes Qualifiers: Venous stasis ulcer site: calf Laterality: right Non-pressure ulcer stage : with fat layer exposed Code(s): I83.009 - Varicose veins of unspecified lower extremity with ulcer of unspecified site; L97.909 - Non-pressure chronic ulcer of unspecified part of unspecified lower leg with unspecified severity (8) Leg swelling Status: Chronic Current Visit: Yes Code(s): M79.89 - Other specified soft tissue disorders (9) Edema of both legs Status: Chronic Current Visit: Yes Code(s): R60.0 - Localized edema History of Present Illness Date of Service: 06/07/18 Chief Complaint: Chronic venous hypertension with inflammation and ulceration; venous stasis ulceration of the right lower extremity, chronic venous insufficiency, bilateral lower extremity swelling and edema. History of Wound: This is a 33-year-old generally healthy white male who suffers from morbid obesity. He presents with an ulceration on the right anterior tibial surface, which has been present for nearly 5 years. He also has swelling and edema in both lower extremities. His BMI is 61, placing him in a class III obesity category. He is relatively active. He claims to sleep on a flat mattress at night. He does not generally elevate his lower extremities when he is inactive. He denies a history of thrombophlebitis in the past. His primary care physician has attempted to manage his right lower extremity ulceration in the past, without success. This has resulted in referral to the Wound Center setting. Past Medical History Past Medical History: Chronic Problems (Last Updated 06/01/18 @ 17:36 by Cira Bradshaw) Hyperlipidemia (Chronic) Dyspnea on exertion (Chronic) SOB (shortness of breath) (Chronic) Morbid obesity with BMI of 60.0-69.9, adult (Chronic) Chronic venous insufficiency (Chronic) Chronic venous hypertension w/ulcer and inflammation involv right side (Chronic) Venous stasis ulcer (Chronic) Leg swelling (Chronic) Edema of both legs (Chronic) Surgical History: no surgical history Allergies/Adverse Reactions: Allergies No Known Allergies Allergy (Verified 05/17/18 15:42) Home Medications: Ambulatory Orders Medication Instructions Recorded escitalopram 10 mg tablet 10 mg PO QDAY 06/01/18 - Family History Paternal Family History: Family History (Last Updated 06/01/18 @ 17:33 by Cira Bradshaw) Sister Hypertension - - The patient is estranged from his father, and knows little about his father' s medical history. The patient's mother is 58 years of age and healthy. Smoking Status: Never smoker Tobacco Use: Non-smoker Review of Systems Constitutional: Denies: Chills, Fever, Weight Change Eyes: Denies: Pain, Vision Change HEENT: Denies: Difficulty Hearing, Difficulty Swallowing, Sinus Congestion Cardiovascular: Denies: Chest Pain, Palpitations Respiratory: Denies: Cough, Shortness of Breath Gastrointestinal: Denies: Diarrhea, Nausea, Vomiting Genitourinary: Denies: Dysuria, Hematuria Endocrine: Denies: Heat/ Cold Intolerance, Polydipsia, Polyuria Hematologic/ Lymphatic: Denies: Easy Bruising, Easy Bleeding - Physical Exam Vital Signs Temp Pulse Resp BP 98.6 F 89 16 150/102 H 06/07/18 15:41 06/07/18 15:41 06/07/18 15:41 06/07/18 15:41 General: Alert, Oriented x3, Cooperative, No apparent distress, Well developed, Well nourished, - - The patient is morbidly obese. HEENT: Atraumatic, PERRLA, EOMI, Normocephalic Oral: Moist Mucosa Neck: No JVD Lungs: Normal air movement Abdomen: Non-Distended, Obese Extremities: No clubbing, No cyanosis, No Calf Tenderness, - - Mild to moderate bilateral lower extremity edema persists. However, it does appear improved. The venous ulceration on the right anterior tibial surface is smaller in size. Dimensions are documented elsewhere. There is no evidence of infection or cellulitis. There is evidence of peripheral epithelialization. The base of the ulceration is pink and healthy in appearance, with active granulation tissue. The emir-ulcer skin changes are diminishing and improving. Skin: No rashes Wound Measurements and Assessment WC - Nurse 1 - General Ulcer Measurement Start: 06/04/18 15:51 Freq: Status: Active Protocol: Activity Type Activity Date Activity User E-Sign Co-Sign Detail Recorded Client Recorded Date Recorded By Document 06/04/18 15:51 JS [id number] 06/04/18 16:10 JS Document 06/07/18 15:41 CS [id number] 06/07/18 15:43 CS 06/04/18 06/07/18 15:51 15:41 Wound Center Nurse 1 [Ulcer Assessment] #1 R Lower Rodriguez -Combined with other wound No No -Current Size (cm) - Length 1.1 1 -Current Size (cm) - Width 1.1 1.1 -Current Size (cm) - Depth 0.1 0.1 -Total Square Cm 1.21 1.1 -Photo Taken No No -Epithelialization None Present Small 1-33% -Tunneling No No -Undermining/Tunneling No No -Circular Undermining No No -Classification - Thickness Full Thickness without Exposed Support Structure -Exudate Amt Small (1-33%) Medium (34-66%) -Exudate Type Serosanguineous Serosanguineous -Wound Margin Distinct, Distinct, Outline Outline Attached Attached -Granulation Amt Small (1-33%) Medium (34-66%) -Granulation Quality Red Red -Slough/Fibrin Yes Yes -Necrosis Amt None Present (0 None Present (0 %) %) -Necrotic Tissue Type Adherent Slough Adherent Slough -Structure Exposed None/Limited to None/Limited to Skin Breakdown Skin Breakdown -Texture (Emir-wound Skin Appearance) No Abnormality No Abnormality Assessed -Moisture (Emir-wound Skin Appearance No Abnormality No Abnormality ) Assessed -Color (Emir-wound Skin Appearance) Hemosiderin No Abnormality Staining Assessed -Temperature (Emir-wound Skin No Abnormality No Abnormality Appearance) (Pt Warm) (Pt Warm) -Tenderness on Palpation (Emir-wound No No Skin Appearance) -Ulcer Cleansing DYNAHEX SOAP Wound Cleanser -Foul Odor after Cleansing No No -Anesthetic Used 4% Lidocaine Solution [Edema Assessment] -Lower Limb Edema Present Yes Yes -Right Calf (cm) 65.5 62.3 -Right Ankle (cm) 34.0 34.7 - Nurse 2 - General Ulcer CM Notes Start: 06/04/18 15:51 Freq: Status: Active Protocol: Activity Type Activity Date Activity User E-Sign Co-Sign Detail Recorded Client Recorded Date Recorded By Document 06/07/18 16:16 [email or web address] [id number] 06/07/18 16:17 06/07/18 16:16 Wound Center Nurse 2 [Procedure/Treatment] #1 R Lower Rodriguez -Time 16:16 -Correct Patient Yes -Correct Side, Site, Position Yes -Correct Procedure Yes -Procedure Performed Yes -Type of Procedure Debridement -Clinical Debridement Subcutaneous -Post Debridement Size (cm) - Length 1.0 -Post Debridement Size (cm) - Width 1.1 -Post Debridement Size (cm) - Depth 0.1 -Total Square Cm 1.10 -Wound/Ulcer Outcome Not Healed -Ulcer Cleansing Rinsed/ Irrigated with Saline -Foul Odor after Cleansing No -Bioengineered Tissue No -Topical Lidocaine (%) 4 -Bleeding Controlled with NA -Treatment Response Procedure Tolerated Well [See Physician Procedure note for Specifics] Pain Scale: 0-10 Numeric [Pain] -Is Patient Pain Free? Yes Musculoskeletal: No Muscle Wasting Neurological: Cranial nerves II-XII grossly intact, Neuro grossly intact Psych/Mental Status: Normal Affect, Appropriate, Alert and oriented to time, place, person, mood and affect Debridement Note Post-Debridement Measurements/Treatment - Nurse 2 - General Ulcer CM Notes Start: 06/04/18 15:51 Freq: Status: Active Protocol: Activity Type Activity Date Activity User E-Sign Co-Sign Detail Recorded Client Recorded Date Recorded By Document 06/07/18 16:16 [email or web address] [id number] 06/07/18 16:17 06/07/18 16:16 Wound Center Nurse 2 #1 R Lower Rodriguez -Time 16:16 -Correct Patient Yes -Correct Side, Site, Position Yes -Correct Procedure Yes -Procedure Performed Yes -Type of Procedure Debridement -Clinical Debridement Subcutaneous -Post Debridement Size (cm) - Length 1.0 -Post Debridement Size (cm) - Width 1.1 -Post Debridement Size (cm) - Depth 0.1 -Total Square Cm 1.10 -Wound/Ulcer Outcome Not Healed -Ulcer Cleansing Rinsed/ Irrigated with Saline -Foul Odor after Cleansing No -Bioengineered Tissue No -Topical Lidocaine (%) 4 -Bleeding Controlled with NA -Treatment Response Procedure Tolerated Well Pain Scale: 0-10 Numeric Is Patient Pain Free? Yes Laterality: Right - Anterior tibial surface Type of Debridement: Excisional debridement Anesthesia Used: 4% Lidocaine Solution Depth: Down to and including healthy tissue, in the subcutaneous layer Percentage of wound debrided: 100 Instrument Used: 5mm curette Severity: Fat Layer Exposed Amount of bleeding with debridement: Mild Bleeding Controlled with: Compression and gauze Patient tolerated procedure well Assessment/Plan Active Problems (Last Updated 06/01/18 @ 17:36 by Cira Bradshaw) Chronic venous insufficiency (Chronic) Chronic venous hypertension w/ulcer and inflammation involv right side (Chronic) Venous stasis ulcer (Chronic) Leg swelling (Chronic) Edema of both legs (Chronic) Assessment: This is a generally healthy but morbidly obese 33-year-old white male who presents with a long-standing ulceration on the distal right lower extremity. The ulceration is thought to be venous in origin. Swelling and edema are also noted bilaterally in the lower extremities. Plan: The patient has been counseled as to lifestyle changes appropriate to implementing conservative treatment measures and treatment for his lower extremity swelling and edema, and the ulceration on the right anterior tibial surface. He has been advised to elevate his lower extremities as much as possible. This is to be accomplished even during daytime hours. His legs are to be elevated to heart level, or higher. He is to continue sleeping on a flat mattress at night. He has been advised to refrain from prolonged, idle sitting. Activity has been encouraged. Attempts at weight loss have been strongly encouraged as well. We are to continue compression to the right lower extremity by means of an Unna boot, which will be applied in the Wound Center twice weekly. A prescription has been provided for graduated compression stockings, knee-high length, of 20-30 mmHg compression. Given the patient's size, customized stockings may be required. If cost is prohibitive, we may alternatively consider the use of CircAid Velcro garments. There is little likelihood of arterial occlusive disease, so a noninvasive lower extremity arterial study will not be scheduled. Patient is return in 1 week for reevaluation. The patient's blood pressure has been noted to be elevated at his prior visit, and the patient is in the process of arranging evaluation with his primary care physician. Influenza vaccine was not administered today. The patient is not a smoker. The patient weighs 450 pounds. He stands 6 feet 0 inches in height. His BMI is 61, which places him in a class III obesity category. Weight loss has been strongly recommended, and collaboration with the patient's primary care physician has been recommended.
[2018-06-11 16:14] VITALS: BP 166/105; PULSE 100; RESP 18; TEMP 36
[2018-06-14 15:07] VITALS: BP 144/83; PULSE 107; RESP 18; TEMP 35.9
--- NOTE | 2018-06-14 15:39 | PCM.WC.HP ---
(1) Hyperlipidemia Status: Chronic Current Visit: No Code(s): E78.5 - Hyperlipidemia, unspecified (2) Dyspnea on exertion Status: Chronic Current Visit: No Code(s): R06.09 - Other forms of dyspnea (3) SOB (shortness of breath) Status: Chronic Current Visit: No Code(s): R06.02 - Shortness of breath (4) Morbid obesity with BMI of 60.0-69.9, adult Status: Chronic Current Visit: Yes Code(s): E66.01 - Morbid (severe) obesity due to excess calories; Z68.44 - Body mass index (BMI) 60.0-69.9, adult (5) Chronic venous insufficiency Status: Chronic Current Visit: Yes Code(s): I87.2 - Venous insufficiency (chronic) (peripheral) (6) Chronic venous hypertension w/ulcer and inflammation involv right side Status: Chronic Current Visit: Yes Code(s): I87.331 - Chronic venous hypertension (idiopathic) with ulcer and inflammation of right lower extremity; L97.919 - Non-pressure chronic ulcer of unspecified part of right lower leg with unspecified severity (7) Venous stasis ulcer Status: Chronic Current Visit: Yes Qualifiers: Venous stasis ulcer site: calf Laterality: right Non-pressure ulcer stage: with fat layer exposed Code(s): I83.009 - Varicose veins of unspecified lower extremity with ulcer of unspecified site; L97.909 - Non-pressure chronic ulcer of unspecified part of unspecified lower leg with unspecified severity (8) Leg swelling Status: Chronic Current Visit: Yes Code(s): M79.89 - Other specified soft tissue disorders (9) Edema of both legs Status: Chronic Current Visit: Yes Code(s): R60.0 - Localized edema History of Present Illness Date of Service: 06/14/18 Chief Complaint: Chronic venous hypertension with inflammation and ulceration; venous stasis ulceration of the right lower extremity, chronic venous insufficiency, bilateral lower extremity swelling and edema. History of Wound: This is a 33-year-old generally healthy white male who suffers from morbid obesity. He presents with an ulceration on the right anterior tibial surface, which has been present for nearly 5 years. He also has swelling and edema in both lower extremities. His BMI is 61, placing him in a class III obesity category. He is relatively active. He claims to sleep on a flat mattress at night. He does not generally elevate his lower extremities when he is inactive. He denies a history of thrombophlebitis in the past. His primary care physician has attempted to manage his right lower extremity ulceration in the past, without success. This has resulted in referral to the Wound Center setting. Past Medical History Past Medical History: Chronic Problems (Last Updated 06/01/18 @ 17:36 by Cira Bradshaw) Hyperlipidemia (Chronic) Dyspnea on exertion (Chronic) SOB (shortness of breath) (Chronic) Morbid obesity with BMI of 60.0-69.9, adult (Chronic) Chronic venous insufficiency (Chronic) Chronic venous hypertension w/ulcer and inflammation involv right side (Chronic) Venous stasis ulcer (Chronic) Leg swelling (Chronic) Edema of both legs (Chronic) Surgical History: no surgical history Allergies/Adverse Reactions: Allergies No Known Allergies Allergy (Verified 05/17/18 15:42) Home Medications: Ambulatory Orders Medication Instructions Recorded escitalopram 10 mg tablet 10 mg PO QDAY 06/01/18 - Family History Paternal Family History: Family History (Last Updated 06/01/18 @ 17:33 by Cira Bradshaw) Sister Hypertension - - The patient is estranged from his father, and knows little about his father's medical history. The patient's mother is 58 years of age and healthy. Smoking Status: Never smoker Tobacco Use: Non-smoker Review of Systems Constitutional: Denies: Chills, Fever, Weight Change Eyes: Denies: Pain, Vision Change HEENT: Denies: Difficulty Hearing, Difficulty Swallowing, Sinus Congestion Cardiovascular: Denies: Chest Pain, Palpitations Respiratory: Denies: Cough, Shortness of Breath Gastrointestinal: Denies: Diarrhea, Nausea, Vomiting Genitourinary: Denies: Dysuria, Hematuria Endocrine: Denies: Heat/ Cold Intolerance, Polydipsia, Polyuria Hematologic/ Lymphatic: Denies: Easy Bruising, Easy Bleeding - Physical Exam Vital Signs Temp Pulse Resp BP 96.6 F L 107 H 18 144/83 H 06/14/18 15:07 06/14/18 15:07 06/14/18 15:07 06/14/18 15:07 General: Alert, Oriented x3, Cooperative, No apparent distress, Well developed, Well nourished HEENT: Atraumatic, PERRLA, EOMI, Normocephalic Oral: Moist Mucosa Neck: No JVD Lungs: Normal air movement Abdomen: Non-Distended Extremities: No clubbing, No cyanosis, No Calf Tenderness, - - Moderate swelling and edema is noted in the lower extremities bilaterally. Circumference measurements are documented elsewhere. There is no sign of infection or cellulitis. The ulceration on the anterolateral aspect of the right distal lower extremity is smaller in size. Dimensions are documented elsewhere. There is a mild amount of bioburden. Wound Measurements and Assessment WC - Nurse 1 - General Ulcer Measurement Start: 06/04/18 15:51 Freq: Status: Active Protocol: Activity Type Activity Date Activity User E-Sign Co-Sign Detail Recorded Client Recorded Date Recorded By Document 06/14/18 15:07 JACKELINE [id number] 06/14/18 15:13 JACKELINE 06/14/18 15:07 Wound Center Nurse 1 [Ulcer Assessment] #1 R Lower [place] -Combined with other wound No -Current Size (cm) - Length 0.4 -Current Size (cm) - Width 0.4 -Current Size (cm) - Depth 0.1 -Total Square Cm 0.16 -Photo Taken No -Epithelialization Medium 34-66% -Tunneling No -Undermining/Tunneling No -Circular Undermining No -Exudate Amt Small (1-33%) -Exudate Type Serosanguineous -Wound Margin Flat & Intact -Granulation Amt Medium (34-66%) -Granulation Quality Red -Slough/Fibrin Yes -Necrosis Amt Small (1-33%) -Necrotic Tissue Type Adherent Slough -Structure Exposed N/A -Texture (Leydi-wound Skin Appearance) Assessed Localized Edema -Moisture (Leydi-wound Skin Appearance Assessed ) -Color (Leydi-wound Skin Appearance) Assessed Hemosiderin Staining -Temperature (Leydi-wound Skin No Abnormality Appearance) (Pt Warm) -Tenderness on Palpation (Leydi-wound No Skin Appearance) -Ulcer Cleansing Wound Cleanser -Foul Odor after Cleansing No -Anesthetic Used 4% Lidocaine Solution [Edema Assessment] -Lower Limb Edema Present Yes -Right Calf (cm) 66.5 -Right Ankle (cm) 34.0 WC - Nurse 2 - General Ulcer CM Notes Start: 06/04/18 15:51 Freq: Status: Active Protocol: Activity Type Activity Date Activity User E-Sign Co-Sign Detail Recorded Client Recorded Date Recorded By Document 06/14/18 15:23 [id number] 06/14/18 15:27 06/14/18 15:23 Wound Center Nurse 2 [Procedure/Treatment] #1 R Lower [place] -Time 15:25 -Correct Patient Yes -Correct Side, Site, Position Yes -Correct Procedure Yes -Procedure Performed Yes -Type of Procedure Debridement -Clinical Debridement Subcutaneous -Post Debridement Size (cm) - Length 0.5 -Post Debridement Size (cm) - Width 0.6 -Post Debridement Size (cm) - Depth 0.1 -Total Square Cm 0.30 -Wound/Ulcer Outcome Not Healed -Ulcer Cleansing Rinsed/ Irrigated with Saline -Foul Odor after Cleansing No -Bioengineered Tissue No -Bleeding Controlled with NA -Treatment Response Procedure Tolerated Well [See Physician Procedure note for Specifics] Pain Scale: 0-10 Numeric [Pain] -Is Patient Pain Free? Yes Musculoskeletal: No Muscle Wasting Neurological: Cranial nerves II-XII grossly intact, Neuro grossly intact Psych/Mental Status: Normal Affect, Appropriate, Alert and oriented to time, place, person, mood and affect Debridement Note Post-Debridement Measurements/Treatment WC - Nurse 2 - General Ulcer CM Notes Start: 06/04/18 15:51 Freq: Status: Active Protocol: Activity Type Activity Date Activity User E-Sign Co-Sign Detail Recorded Client Recorded Date Recorded By Document 06/07/18 16:16 [id number] 06/07/18 16:17 Document 06/14/18 15:23 [id number] 06/14/18 15:27 06/07/18 06/14/18 16:16 15:23 Wound Center Nurse 2 #1 R Lower [place] -Time 16:16 15:25 -Correct Patient Yes Yes -Correct Side, Site, Position Yes Yes -Correct Procedure Yes Yes -Procedure Performed Yes Yes -Type of Procedure Debridement Debridement -Clinical Debridement Subcutaneous Subcutaneous -Post Debridement Size (cm) - Length 1.0 0.5 -Post Debridement Size (cm) - Width 1.1 0.6 -Post Debridement Size (cm) - Depth 0.1 0.1 -Total Square Cm 1.10 0.30 -Wound/Ulcer Outcome Not Healed Not Healed -Ulcer Cleansing Rinsed/ Rinsed/ Irrigated with Irrigated with Saline Saline -Foul Odor after Cleansing No No -Bioengineered Tissue No No -Topical Lidocaine (%) 4 -Bleeding Controlled with NA NA -Treatment Response Procedure Procedure Tolerated Well Tolerated Well Pain Scale: 0-10 Numeric Is Patient Pain Free? Yes Yes Laterality: Right - Anterolateral distal lower extremity Type of Debridement: Excisional debridement Anesthesia Used: 4% Lidocaine Solution Depth: Down to and including healthy tissue, in the subcutaneous layer Percentage of wound debrided: 100 Instrument Used: 5mm curette Severity: Fat Layer Exposed Amount of bleeding with debridement: Mild Bleeding Controlled with: Compression and gauze Patient tolerated procedure well Assessment/Plan Active Problems (Last Updated 06/01/18 @ 17:36 by Cira Bradshaw) Morbid obesity with BMI of 60.0-69.9, adult (Chronic) Chronic venous insufficiency (Chronic) Chronic venous hypertension w/ulcer and inflammation involv right side (Chronic) Venous stasis ulcer (Chronic) Leg swelling (Chronic) Edema of both legs (Chronic) Assessment: This is a generally healthy but morbidly obese 33-year-old white male who presents with a long-standing ulceration on the distal right lower extremity. The ulceration is thought to be venous in origin. Swelling and edema are also noted bilaterally in the lower extremities. Thus far, the patient is responded to conservative treatment measures relative to the swelling and edema and the ulceration in the lower extremity. Plan: The patient has been counseled as to lifestyle changes appropriate to implementing conservative treatment measures and treatment for his lower extremity swelling and edema, and the ulceration on the right anterior tibial surface. He has been advised to elevate his lower extremities as much as possible. This is to be accomplished even during daytime hours. His legs are to be elevated to heart level, or higher. He is to continue sleeping on a flat mattress at night. He has been advised to refrain from prolonged, idle sitting. Activity has been encouraged. Attempts at weight loss have been strongly encouraged as well. We are to continue compression to the right lower extremity. We will transition to the use of a 3M 2 layer compression wrap. We will place Ellen topically. The dressing and wraps will be changed twice weekly. The patient had been provided a prescription for CircAid Velcro compression garments, but has learned that these are not large enough to accommodate the patient's size. In their place, we will prescribe Farrow wraps, which will be ordered on the patient's behalf, his measurements having been submitted to a third-alliance party [employer]. There is little likelihood of arterial occlusive disease, so a noninvasive lower extremity arterial study will not be scheduled. Patient is to return in 1 week for reevaluation. The patient's blood pressure has been noted to be elevated at a prior visit, and the patient has scheduled an appointment for later this week with his primary care physician. Influenza vaccine was not administered today. The patient is not a smoker. The patient weighs 450 pounds. He stands 6 feet 0 inches in height. His BMI is 61, which places him in a class III obesity category. Weight loss has been strongly recommended, and collaboration with the patient's primary care physician has been recommended.
[2018-06-22 15:01] VITALS: BP 159/87; PULSE 107; RESP 18; TEMP 37.3
--- NOTE | 2018-06-22 15:13 | PCM.WC.HP ---
(1) Hyperlipidemia Status: Chronic Current Visit: No Code(s): E78.5 - Hyperlipidemia, unspecified (2) Dyspnea on exertion Status: Chronic Current Visit: No Code(s): R06.09 - Other forms of dyspnea (3) SOB (shortness of breath) Status: Chronic Current Visit: No Code(s): R06.02 - Shortness of breath (4) Morbid obesity with BMI of 60.0-69.9, adult Status: Chronic Current Visit: Yes Code(s): E66.01 - Morbid (severe) obesity due to excess calories; Z68.44 - Body mass index (BMI) 60.0-69.9, adult (5) Chronic venous insufficiency Status: Chronic Current Visit: Yes Code(s): I87.2 - Venous insufficiency (chronic) (peripheral) (6) Chronic venous hypertension w/ulcer and inflammation involv right side Status: Chronic Current Visit: Yes Code(s): I87.331 - Chronic venous hypertension (idiopathic) with ulcer and inflammation of right lower extremity; L97.919 - Non-pressure chronic ulcer of unspecified part of right lower leg with unspecified severity (7) Venous stasis ulcer Status: Chronic Current Visit: Yes Qualifiers: Venous stasis ulcer site: calf Laterality: right Non-pressure ulcer stage: with fat layer exposed Code(s): I83.009 - Varicose veins of unspecified lower extremity with ulcer of unspecified site; L97.909 - Non-pressure chronic ulcer of unspecified part of unspecified lower leg with unspecified severity (8) Leg swelling Status: Chronic Current Visit: Yes Code(s): M79.89 - Other specified soft tissue disorders (9) Edema of both legs Status: Chronic Current Visit: Yes Code(s): R60.0 - Localized edema History of Present Illness Date of Service: 06/22/18 Chief Complaint: Chronic venous hypertension with inflammation and ulceration; venous stasis ulceration of the right lower extremity, chronic venous insufficiency, bilateral lower extremity swelling and edema. History of Wound: This is a 33-year-old generally healthy white male who suffers from morbid obesity. He presents with an ulceration on the right anterior tibial surface, which has been present for nearly 5 years. He also has swelling and edema in both lower extremities. His BMI is 61, placing him in a class III obesity category. He is relatively active. He claims to sleep on a flat mattress at night. He does not generally elevate his lower extremities when he is inactive. He denies a history of thrombophlebitis in the past. His primary care physician has attempted to manage his right lower extremity ulceration in the past, without success. This has resulted in referral to the Wound Center setting. Past Medical History Past Medical History: Chronic Problems (Last Updated 06/01/18 @ 17:36 by Cira Bradshaw) Hyperlipidemia (Chronic) Dyspnea on exertion (Chronic) SOB (shortness of breath) (Chronic) Morbid obesity with BMI of 60.0-69.9, adult (Chronic) Chronic venous insufficiency (Chronic) Chronic venous hypertension w/ulcer and inflammation involv right side (Chronic) Venous stasis ulcer (Chronic) Leg swelling (Chronic) Edema of both legs (Chronic) Surgical History: no surgical history Allergies/Adverse Reactions: Allergies No Known Allergies Allergy (Verified 05/17/18 15:42) Home Medications: Ambulatory Orders Medication Instructions Recorded escitalopram 10 mg tablet 10 mg PO QDAY 06/01/18 - Family History Paternal Family History: Family History (Last Updated 06/01/18 @ 17:33 by Cira Bradshaw) Sister Hypertension - - The patient is estranged from his father, and knows little about his father's medical history. The patient's mother is 58 years of age and healthy. Smoking Status: Never smoker Tobacco Use: Non-smoker Review of Systems Constitutional: Denies: Chills, Fever, Weight Change Eyes: Denies: Pain, Vision Change HEENT: Denies: Difficulty Hearing, Difficulty Swallowing, Sinus Congestion Cardiovascular: Denies: Chest Pain, Palpitations Respiratory: Denies: Cough, Shortness of Breath Gastrointestinal: Denies: Diarrhea, Nausea, Vomiting Genitourinary: Denies: Dysuria, Hematuria Endocrine: Denies: Heat/ Cold Intolerance, Polydipsia, Polyuria Hematologic/ Lymphatic: Denies: Easy Bruising, Easy Bleeding - Physical Exam Vital Signs Temp Pulse Resp BP 99.1 F 107 H 18 159/87 H 06/22/18 15:01 06/22/18 15:01 06/22/18 15:01 06/22/18 15:01 General: Alert, Oriented x3, Cooperative, No apparent distress, Well developed, Well nourished HEENT: Atraumatic, PERRLA, EOMI, Normocephalic Oral: Moist Mucosa Neck: No JVD Lungs: Normal air movement Abdomen: Non-Distended Extremities: No clubbing, No cyanosis, No Calf Tenderness, - - The swelling and edema in the lower extremities is improved, and nearly resolved. Nonetheless, the girth of the patient's limbs is large, consistent with his morbid obesity. The ulceration on the right anterior tibial surface is essentially healed. It has made significant improvement since last evaluated. There is no sign of infection or cellulitis. Circumference measurements are documented elsewhere. Chronic hemosiderin staining is noted in the gaiter areas of the lower extremities. Skin: No rashes Wound Measurements and Assessment WC - Nurse 1 - General Ulcer Measurement Start: 06/04/18 15:51 Freq: Status: Active Protocol: Activity Type Activity Date Activity User E-Sign Co-Sign Detail Recorded Client Recorded Date Recorded By Document 06/22/18 15:01 [id number] 06/22/18 15:02 TM 06/22/18 15:01 Wound Center Nurse 1 [Ulcer Assessment] #1 R Lower [place] -Combined with other wound No -Current Size (cm) - Length 0.1 -Current Size (cm) - Width 0.1 -Current Size (cm) - Depth 0.1 -Total Square Cm 0.01 -Date of Last Picture (Recall this 06/22/18 field) -Photo Taken Yes -Epithelialization Large 67-100% -Tunneling No -Undermining/Tunneling No -Circular Undermining No -Classification - Thickness Full Thickness without Exposed Support Structure -Exudate Amt None Present (0 %) -Wound Margin Distinct, Outline Attached -Granulation Amt Large (67-100%) -Granulation Quality [place] -Slough/Fibrin No -Necrosis Amt None Present (0 %) -Structure Exposed None/Limited to Skin Breakdown -Texture (Leydi-wound Skin Appearance) Assessed Localized Edema Scarring -Moisture (Leydi-wound Skin Appearance Assessed ) Dry/Scaly -Color (Leydi-wound Skin Appearance) Assessed Hemosiderin Staining -Temperature (Leydi-wound Skin No Abnormality Appearance) (Pt Warm) -Tenderness on Palpation (Leydi-wound No Skin Appearance) -Ulcer Cleansing Rinsed/ Irrigated with Saline -Foul Odor after Cleansing No -Anesthetic Used 4% Lidocaine Solution [Edema Assessment] -Lower Limb Edema Present Yes -Right Calf (cm) 66.0 -Right Ankle (cm) 35.0 - Nurse 2 - General Ulcer CM Notes Start: 06/04/18 15:51 Freq: Status: Active Protocol: Activity Type Activity Date Activity User E-Sign Co-Sign Detail Recorded Client Recorded Date Recorded By Document 06/22/18 15:04 [id number] 06/22/18 15:08 06/22/18 15:04 Wound Center Nurse 2 [Procedure/Treatment] #1 R Lower [place] -Time 15:05 -Correct Patient Yes -Correct Side, Site, Position Yes -Correct Procedure Yes -Procedure Performed No -Wound/Ulcer Outcome Healed- Epithelialized [See Physician Procedure note for Specifics] Musculoskeletal: No Muscle Wasting Neurological: Cranial nerves II-XII grossly intact, Neuro grossly intact Psych/Mental Status: Normal Affect, Appropriate, Alert and oriented to time, place, person, mood and affect Debridement Note Post-Debridement Measurements/Treatment - Nurse 2 - General Ulcer CM Notes Start: 06/04/18 15:51 Freq: Status: Active Protocol: Activity Type Activity Date Activity User E-Sign Co-Sign Detail Recorded Client Recorded Date Recorded By Document 06/07/18 16:16 [id number] 06/07/18 16:17 JS Document 06/14/18 15:23 [id number] 06/14/18 15:27 JS Document 06/22/18 15:04 [id number] 06/22/18 15:08 06/07/18 06/14/18 06/22/18 16:16 15:23 15:04 Wound Center Nurse 2 #1 R Lower [place] -Time 16:16 15:25 15:05 -Correct Patient Yes Yes Yes -Correct Side, Site, Position Yes Yes Yes -Correct Procedure Yes Yes Yes -Procedure Performed Yes Yes No -Type of Procedure Debridement Debridement -Clinical Debridement Subcutaneous Subcutaneous -Post Debridement Size (cm) - Length 1.0 0.5 -Post Debridement Size (cm) - Width 1.1 0.6 -Post Debridement Size (cm) - Depth 0.1 0.1 -Total Square Cm 1.10 0.30 -Wound/Ulcer Outcome Not Healed Not Healed Healed- Epithelialized -Ulcer Cleansing Rinsed/ Rinsed/ Irrigated with Irrigated with Saline Saline -Foul Odor after Cleansing No No -Bioengineered Tissue No No -Topical Lidocaine (%) 4 -Bleeding Controlled with NA NA -Treatment Response Procedure Procedure Tolerated Well Tolerated Well Pain Scale: 0-10 Numeric Is Patient Pain Free? Yes Yes No debridement was completed today Assessment/Plan Active Problems (Last Updated 06/01/18 @ 17:36 by Cira Bradshaw) Morbid obesity with BMI of 60.0-69.9, adult (Chronic) Chronic venous insufficiency (Chronic) Chronic venous hypertension w/ulcer and inflammation involv right side (Chronic) Venous stasis ulcer (Chronic) Leg swelling (Chronic) Edema of both legs (Chronic) Assessment: This is a generally healthy but morbidly obese 33-year-old white male who presented with a long-standing ulceration on the distal right lower extremity. The ulceration is thought to be venous in origin. Swelling and edema are also noted bilaterally in the lower extremities. Thus far, the patient is responded to conservative treatment measures relative to the swelling and edema and the ulceration in the lower extremity. The ulceration is now, for all intents and purposes, completely healed. Plan: The patient has been counseled as to lifestyle changes appropriate to implementing conservative treatment measures and treatment for his lower extremity swelling and edema, and the ulceration on the right anterior tibial surface. He has been advised to elevate his lower extremities as much as possible. This is to be accomplished even during daytime hours. His legs are to be elevated to heart level, or higher. He is to continue sleeping on a flat mattress at night. He has been advised to refrain from prolonged, idle sitting. Activity has been encouraged. Attempts at weight loss have been strongly encouraged as well. We are to continue compression to the right lower extremity. We will continue the use of a 3M 2 layer compression wrap. No particular dressing as needed at the site of the patient's healed ulceration. The patient has obtained his Farrow wrap, but has not worn it, nor did he bring it with him today. The patient has been instructed to return in 3 days, and to bring the Farrow wrap with him. It will be applied, and if deemed to be suitable, will be used henceforth for compression to the lower extremity. Patient will return in 1 week for reassessment. At that time, the patient continues to do well, and continues to implement the recommended conservative treatment measures, it is likely that discharge will be appropriate. The patient's blood pressure has been noted to be elevated at a prior visit, and the patient has scheduled an appointment with his primary care physician. Influenza vaccine was not administered today. The patient is not a smoker. The patient weighs 450 pounds. He stands 6 feet 0 inches in height. His BMI is 61, which places him in a class III obesity category. Weight loss has been strongly recommended, and collaboration with the patient's primary care physician has been recommended.
[2018-06-25 16:39] VITALS: BP 136/63; PULSE 107; RESP 20; TEMP 36.6
[2018-06-28 14:31] VITALS: BP 155/88; PULSE 93; RESP 18; TEMP 36.3
--- NOTE | 2018-06-28 15:00 | PCM.WC.HP ---
(1) Hyperlipidemia Status: Chronic Current Visit: No Code(s): E78.5 - Hyperlipidemia, unspecified (2) Dyspnea on exertion Status: Chronic Current Visit: No Code(s): R06.09 - Other forms of dyspnea (3) SOB (shortness of breath) Status: Chronic Current Visit: No Code(s): R06.02 - Shortness of breath (4) Morbid obesity with BMI of 60.0-69.9, adult Status: Chronic Current Visit: Yes Code(s): E66.01 - Morbid (severe) obesity due to excess calories; Z68.44 - Body mass index (BMI) 60.0-69.9, adult (5) Chronic venous insufficiency Status: Chronic Current Visit: Yes Code(s): I87.2 - Venous insufficiency (chronic) (peripheral) (6) Chronic venous hypertension w/ulcer and inflammation involv right side Status: Chronic Current Visit: Yes Code(s): I87.331 - Chronic venous hypertension (idiopathic) with ulcer and inflammation of right lower extremity; L97.919 - Non-pressure chronic ulcer of unspecified part of right lower leg with unspecified severity (7) Venous stasis ulcer Status: Chronic Current Visit: Yes Qualifiers: Venous stasis ulcer site: calf Laterality: right Non-pressure ulcer stage: with fat layer exposed Code(s): I83.009 - Varicose veins of unspecified lower extremity with ulcer of unspecified site; L97.909 - Non-pressure chronic ulcer of unspecified part of unspecified lower leg with unspecified severity (8) Leg swelling Status: Chronic Current Visit: Yes Code(s): M79.89 - Other specified soft tissue disorders (9) Edema of both legs Status: Chronic Current Visit: Yes Code(s): R60.0 - Localized edema History of Present Illness Date of Service: 06/28/18 Chief Complaint: Chronic venous hypertension with inflammation and ulceration; venous stasis ulceration of the right lower extremity, chronic venous insufficiency, bilateral lower extremity swelling and edema. History of Wound: This is a 33-year-old generally healthy white male who suffers from morbid obesity. He presented with an ulceration on the right anterior tibial surface, which had been present for nearly 5 years. He also had swelling and edema in both lower extremities. His BMI is 61, placing him in a class III obesity category. He is relatively active. He claims to sleep on a flat mattress at night. He does not generally elevate his lower extremities when he is inactive. He denies a history of thrombophlebitis in the past. His primary care physician has attempted to manage his right lower extremity ulceration in the past, without success. This has resulted in referral to the Wound Center setting. Past Medical History Past Medical History: Chronic Problems (Last Updated 06/01/18 @ 17:36 by Cira Bradshaw) Hyperlipidemia (Chronic) Dyspnea on exertion (Chronic) SOB (shortness of breath) (Chronic) Morbid obesity with BMI of 60.0-69.9, adult (Chronic) Chronic venous insufficiency (Chronic) Chronic venous hypertension w/ulcer and inflammation involv right side (Chronic) Venous stasis ulcer (Chronic) Leg swelling (Chronic) Edema of both legs (Chronic) Surgical History: no surgical history Allergies/Adverse Reactions: Allergies No Known Allergies Allergy (Verified 05/17/18 15:42) Home Medications: Ambulatory Orders Medication Instructions Recorded escitalopram 10 mg tablet 10 mg PO QDAY 06/01/18 - Family History Paternal Family History: Family History (Last Updated 06/01/18 @ 17:33 by Cira Bradshaw) Sister Hypertension - - The patient is estranged from his father, and knows little about his father's medical history. The patient's mother is 58 years of age and healthy. Smoking Status: Never smoker Tobacco Use: Non-smoker Review of Systems Constitutional: Denies: Chills, Fever, Weight Change Eyes: Denies: Pain, Vision Change HEENT: Denies: Difficulty Hearing, Difficulty Swallowing, Sinus Congestion Cardiovascular: Denies: Chest Pain, Palpitations Respiratory: Denies: Cough, Shortness of Breath Gastrointestinal: Denies: Diarrhea, Nausea, Vomiting Genitourinary: Denies: Dysuria, Hematuria Endocrine: Denies: Heat/ Cold Intolerance, Polydipsia, Polyuria Hematologic/ Lymphatic: Denies: Easy Bruising, Easy Bleeding - Physical Exam Vital Signs Temp Pulse Resp BP 97.3 F L 93 18 155/88 H 06/28/18 14:31 06/28/18 14:31 06/28/18 14:31 06/28/18 14:31 General: Alert, Oriented x3, Cooperative, No apparent distress, Well developed, Well nourished, - - The patient is morbidly obese. HEENT: Atraumatic, PERRLA, EOMI, Normocephalic Oral: Moist Mucosa Neck: No JVD Lungs: Normal air movement Abdomen: Non-Distended, Obese Extremities: No clubbing, No cyanosis, No Calf Tenderness, - - The swelling and edema in the patient's lower extremities is minimized. The ulceration on the right anterior tibial surface is now completely healed. There are some surrounding excoriations, due to admitted scratching by the patient due to itching. Skin: No rashes, No breakdown Wound Measurements and Assessment WC - Nurse 1 - General Ulcer Measurement Start: 06/04/18 15:51 Freq: Status: Active Protocol: Activity Type Activity Date Activity User E-Sign Co-Sign Detail Recorded Client Recorded Date Recorded By Document 06/28/18 14:31 [id number] 06/28/18 14:32 06/28/18 14:31 Wound Center Nurse 1 [Edema Assessment] -Lower Limb Edema Present Yes -Right Calf (cm) 67 -Right Ankle (cm) 35 WC - Nurse 2 - General Ulcer CM Notes Start: 06/04/18 15:51 Freq: Status: Active Protocol: Activity Type Activity Date Activity User E-Sign Co-Sign Detail Recorded Client Recorded Date Recorded By Document 06/28/18 14:57 [id number] 06/28/18 14:58 06/28/18 14:57 Pain Scale: 0-10 Numeric [Pain] -Is Patient Pain Free? Yes Musculoskeletal: No Muscle Wasting Neurological: Cranial nerves II-XII grossly intact, Neuro grossly intact Psych/Mental Status: Normal Affect, Appropriate, Alert and oriented to time, place, person, mood and affect Debridement Note Post-Debridement Measurements/Treatment WC - Nurse 2 - General Ulcer CM Notes Start: 06/04/18 15:51 Freq: Status: Active Protocol: Activity Type Activity Date Activity User E-Sign Co-Sign Detail Recorded Client Recorded Date Recorded By Document 06/07/18 16:16 [id number] 06/07/18 16:17 Document 06/14/18 15:23 JS [id number] 06/14/18 15:27 JS Document 06/22/18 15:04 [id number] 06/22/18 15:08 Document 06/28/18 14:57 [id number] 06/28/18 14:58 JF 06/07/18 06/14/18 06/22/18 16:16 15:23 15:04 Wound Center Nurse 2 #1 R Lower [place] -Time 16:16 15:25 15:05 -Correct Patient Yes Yes Yes -Correct Side, Site, Position Yes Yes Yes -Correct Procedure Yes Yes Yes -Procedure Performed Yes Yes No -Type of Procedure Debridement Debridement -Clinical Debridement Subcutaneous Subcutaneous -Post Debridement Size (cm) - Length 1.0 0.5 -Post Debridement Size (cm) - Width 1.1 0.6 -Post Debridement Size (cm) - Depth 0.1 0.1 -Total Square Cm 1.10 0.30 -Wound/Ulcer Outcome Not Healed Not Healed Healed- Epithelialized -Ulcer Cleansing Rinsed/ Rinsed/ Irrigated with Irrigated with Saline Saline -Foul Odor after Cleansing No No -Bioengineered Tissue No No -Topical Lidocaine (%) 4 -Bleeding Controlled with NA NA -Treatment Response Procedure Procedure Tolerated Well Tolerated Well Pain Scale: 0-10 Numeric Is Patient Pain Free? Yes Yes 06/28/18 14:57 Wound Center Nurse 2 #1 R Lower [place] -Time -Correct Patient -Correct Side, Site, Position -Correct Procedure -Procedure Performed -Type of Procedure -Clinical Debridement -Post Debridement Size (cm) - Length -Post Debridement Size (cm) - Width -Post Debridement Size (cm) - Depth -Total Square Cm -Wound/Ulcer Outcome -Ulcer Cleansing -Foul Odor after Cleansing -Bioengineered Tissue -Topical Lidocaine (%) -Bleeding Controlled with -Treatment Response Pain Scale: 0-10 Numeric Is Patient Pain Free? Yes No debridement was completed today Assessment/Plan Active Problems (Last Updated 06/01/18 @ 17:36 by Cira Bradshaw) Morbid obesity with BMI of 60.0-69.9, adult (Chronic) Chronic venous insufficiency (Chronic) Chronic venous hypertension w/ulcer and inflammation involv right side (Chronic) Venous stasis ulcer (Chronic) Leg swelling (Chronic) Edema of both legs (Chronic) Assessment: This is a generally healthy but morbidly obese 33-year-old white male who presented with a long-standing ulceration on the distal right lower extremity. The ulceration is thought to be venous in origin. Swelling and edema are also noted bilaterally in the lower extremities. Thus far, the patient has responded to conservative treatment measures relative to the swelling and edema and the ulceration in the lower extremity. The ulceration is now completely healed. Plan: The patient has been counseled as to lifestyle changes appropriate to implementing conservative treatment measures and treatment for his lower extremity swelling and edema, and the ulceration on the right anterior tibial surface. The ulceration is now completely healed. He has been advised to elevate his lower extremities as much as possible. This is to be accomplished even during daytime hours. His legs are to be elevated to heart level, or higher. He is to continue sleeping on a flat mattress at night. He has been advised to refrain from prolonged, idle sitting. Activity has been encouraged. Attempts at weight loss have been strongly encouraged as well. We are to continue compression to the right lower extremity. The patient has obtained [place] wraps, which he will henceforth wear on a daily basis. The patient is to be discharged from the Wound Center today. He will follow-up on an as-needed basis. Influenza vaccine was not administered today. The patient is not a smoker. The patient weighs 450 pounds. He stands 6 feet 0 inches in height. His BMI is 61, which places him in a class III obesity category. Weight loss has been strongly recommended, and collaboration with the patient's primary care physician has been recommended.
== END 2018-07-02 23:59 ==
LOC: WC 14:30
PROVIDERS: Family Provider Family Medicine Geriatric Medicine; PCP Family Medicine Geriatric Medicine; Visit Provider Surgery
DX: I83.218 Varicose veins of right lower extremity with both ulcer of other part of lower extremity and inflammation (principal); E66.01 Morbid (severe) obesity due to excess calories; Z68.44 Body mass index [BMI] 60.0-69.9, adult; Z71.3 Dietary counseling and surveillance; R60.0 Localized edema; M79.89 Other specified soft tissue disorders; L97.812 Non-pressure chronic ulcer of other part of right lower leg with fat layer exposed; E78.5 Hyperlipidemia, unspecified; R06.02 Shortness of breath; R06.09 Other forms of dyspnea
CPT/HCPCS: 11042; 29580; 99211; 99212; 99213; G0463

== ENCOUNTER 2021-11-11 14:15 | Outpatient (CLI) | payer OTHER, SELFPAY | END 2021-11-11 23:59 | disposition short-term general hospital (02) | LOC: LABSPEC 14:16 | PROVIDERS: PCP Family Medicine Geriatric Medicine; Referring Provider Physician Assistant Surgical; Visit Provider Physician Assistant Surgical | DX: Z20.822 Contact with and (suspected) exposure to COVID-19 (principal) | CPT/HCPCS: 87635; U0003; U0005 ==

== ENCOUNTER 2022-08-04 10:51 | Emergency (ER) | payer OTHER, SELFPAY ==
[2022-08-04 10:52] VITALS: BP 156/119; PULSE 100; RESP 20; TEMP 36.2; O2SAT 97; BMI 65.9
[2022-08-04 10:54] VITALS: BP 156/119; PULSE 100; RESP 20; TEMP 36.2; O2SAT 97
--- NOTE | 2022-08-04 11:14 | VDLE_ITS ---
Reason For Study: Swelling RIGHT GSV is normal. CFV is compressible, spontaneous, phasic, competent and demonstrates normal augmentation. FV is compressible, spontaneous, phasic, competent and demonstrates normal augmentation. POP V is compressible, spontaneous, phasic, competent and demonstrates normal augmentation. T/P Trunk is compressible. PTV is compressible. RT PerV is compressible. Procedure This is a venous duplex using B-mode, color flow and spectral Doppler. Exam performed portable in ED. The study was technically difficult. Calf veins not well visualized. A preliminary report was called and/or faxed to [facility]. VL/Venous Duplex US, Unilateral Interpretation Summary There is no evidence of right lower extremity deep vein thrombosis. Right great saphenous vein appears patent and compressible segmentally. This examination was noted to be t echnically difficult and Veins were not well visualized. Ordering Physician: Jamey Villarreal Referring Physician: Escobar Hoyt Chi Performed By: Lay Johnson RVT
--- NOTE | 2022-08-04 11:15 | ED.VIS.LOWEX ---
HPI History of Present Illness Chief Complaint: Lower Extremity Injury Narrative Narrative: Patient with past medical history of obesity and venous stasis, history of ulcer, used to see Dr. Junior presents with right leg ulcer, worsening redness to his right lower extremity, and increased swelling of his leg. He is concerned about a blood clot because while he has had a chronic venous stasis ulcer that is being treated intermittently with antibiotics and leg wraps, he noticed an area on his right calf and lower extremity that has worsened. He denies any chest pain or shortness of breath. No fevers or chills. He states that the ulcer is chronically draining clear to yellow fluid. While the anterior tibial area where the ulcer is located is chronically dark red, there are more dark reddened areas around his calf to the backside with increased swelling. [facility] Medical History Chronic venous hypertension w/ulcer and inflammation involv right side Chronic venous insufficiency Dyspnea on exertion Edema of both legs Hyperlipidemia Leg swelling Morbid obesity with BMI of 60.0-69.9, adult Sleep apnea SOB (shortness of breath) Venous stasis ulcer Home Medications escitalopram oxalate 10 mg tablet (Lexapro) 10 mg PO QDAY 06/01/18 [History Last Taken Unknown] amoxicillin 875 mg-potassium clavulanate 125 mg tablet 1 tab PO BID #14 tabs 08/04/22 [Rx Last Taken Unknown] Allergy/AdvReac Type Severity Reaction Status Date / Time No Known Allergies Allergy Verified 08/04/22 10:52 Family History Sister Hypertension Social History Smoking Status: Never smoker alcohol intake: current details: Rare substance use type: marijuana ROS ROS ED ROS Narrative Constitutional: No fever, no chills. HEENT: No sore throat. No neck pain. No loss of vision. No rhinorrhea. Cardiovascular: No chest pain. No palpitations. No pedal edema. Respiratory: No cough, no shortness of breath. Abdominal: No abdominal pain. No nausea. No vomiting. Genitourinary: No dysuria. No hematuria. Musculoskeletal: No myalgias. No arthralgias. Neurologic: No headaches. No dizziness. No lightheadedness. Skin: No rash. Increased dark redness to right lower extremity. Chronic venous stasis ulcer right lateral anterior tibial area. Psychiatric: No depression. No anxiety. EXAM Physical Exam Narrative Exam Narrative: Afebrile. Vital signs noted. HEENT: Normocephalic. Atraumatic. PERRL, EOMI. Neck soft and supple. No point tenderness or step off. Cardiovascular: Regular rate and rhythm. No murmurs, rubs, or gallops appreciated. Respiratory: No tachypnea. Lungs clear to auscultation bilaterally. Gastrointestinal: Abdomen soft, nontender, with normoactive bowel sounds. No rebound or guarding. Neurological: Awake. Alert. Nonfocal, nonlateralizing. Skin: No rash. Plus venous stasis ulcer right anterior tibial area, more lateral. Chronic skin changes noted with dark red area. Increasing dark red area around calf circumferentially and toward area of chronic skin changes. Musculoskeletal: No pedal edema. Obesity of bilateral lower extremities. Full range of motion extremities. Const Vital Signs: 08/04/22 10:52 08/04/22 10:54 Temperature 97.2 F L 97.2 F L Temperature Source Temporal Temporal Pulse Rate 100 100 Respiratory Rate 20 H 20 H Blood Pressure 156/119 H 156/119 H Blood Pressure Mean 131 131 Pulse Ox 97 97 Oxygen Delivery Method Room Air Room Air MDM MDM MDM Narrative Medical decision making narrative: Patient is afebrile here. I will obtain a CBC to look for an elevated white count. Ultrasound was obtained to the right lower extremity to look for DVT. CBC shows normal white count of 6.9, hemoglobin stable at 12.1, normal platelet count of 274. Ultrasound of the right lower extremity shows no evidence of DVT. At this point in time, he was given a prescription for Augmentin to take for the next week. He admittedly states that he has been taking antibiotics for the last few days that he had leftover. His venous stasis ulcer will be wrapped with a wet-to-dry dressing. He will follow-up with Dr. Junior for his chronic venous stasis ulcer. I do feel that his skin changes may be more from his chronic venous stasis. Return instructions to the emergency department were reviewed. Disposition is discharged home in stable condition. Lab Data Attestation: I reviewed the patient's lab results. Labs: Laboratory Results - last 24 hr 08/04/22 11:36 WBC 6.9 RBC 4.13 L Hgb 12.1 L Hct 37.9 L MCV 91.8 MCH 29.3 MCHC 31.9 L RDW Std Deviation 44.9 H RDW Coeff of [place] 13.3 Plt Count 274 MPV 9.3 Immature Gran % (Auto) 3.200 H Neut % (Auto) 53.4 Lymph % (Auto) 25.0 [place] % (Auto) 12.8 H Eos % (Auto) 4.4 Baso % (Auto) 1.2 H Absolute Neuts (auto) 3.7 Absolute Lymphs (auto) 1.72 Nucleated RBC % 0 Discharge Plan Triage Chief Complaint: Lower Extremity Injury ED Provider: Jamey Villarreal Dx/Rx/DC Orders Clinical Impression: Venous stasis ulcer, Chronic venous insufficiency, Leg swelling Instructions: ED Lymphedema, ED Venous Leg Ulcer Prescriptions: New amoxicillin-pot clavulanate 875-125 mg tablet 1 tab PO BID Qty: 14 0RF No Action escitalopram oxalate [Lexapro] 10 mg tablet 10 mg PO QDAY Primary Care Provider: Care Physician,No Primary Referrals: Timur Junior MD [Med Staff - Active Staff] - 1 Week if not improving Escobar Hoyt Chi, MD [Med Staff - Active Staff] - Disposition Disposition: Home, Self Care
[2022-08-04 11:47] LABS: Absolute Lymphocyte Count 1.72 X10^3/uL (0.83-4.51); Absolute Neutrophil Count 3.7 X10^3/uL (2.0-7.7); Basophil# 0.08 X10^3/uL; Basophil% 1.2 % (0-1); Eosinophils% 4.4 % (0-5); Hematocrit 37.9 % (40-54); Hemoglobin 12.1 g/dL (13.0-16.5); Lymphocyte # 1.72 X10^3/ul (0.83-4.51); Mean Corp Hgb Conc 31.9 g/dL (32-36); Mean Corpuscular Hgb 29.3 pg (27.0-32.0); Mean Corpuscular Volume 91.8 fL (80-94); Mean Platelet Vol. 9.3 fl (6.2-12.0); Monocyte# 0.88 X10^3/uL; Monocyte% 12.8 % (0-10); NRBC Flagged by Analyzer 0 % (0-5); Neutrophil # 3.68 X10^3/uL (2.7-7.7); Neutrophil % 53.4 % (47-70); Platelet Count 274 K/mm3 (150-450); RBC Distribution Width CV 13.3 % (11.6-14.6); RBC Distribution Width SD 44.9 fl (35.1-43.9); Red Blood Count 4.13 M/mm3 (4.6-6.2); White Blood Count 6.9 K/mm3 (4.4-11.0)
[2022-08-04 12:26] VITALS: BP 152/73; PULSE 93; RESP 16; O2SAT 98
== END 2022-08-04 12:32 | disposition home or self-care (01) ==
PROVIDERS: Emergency Provider Emergency Medicine; Visit Provider Emergency Medicine
DX: L97.919 Non-pressure chronic ulcer of unspecified part of right lower leg with unspecified severity (principal); I87.2 Venous insufficiency (chronic) (peripheral); E78.5 Hyperlipidemia, unspecified; E66.9 Obesity, unspecified; F12.90 Cannabis use, unspecified, uncomplicated; M79.89 Other specified soft tissue disorders
CPT/HCPCS: 85025; 93971; 99283; A4216